=== PATIENT | male | born 1950 | race Caucasian/White ===

== ENCOUNTER 2016-11-19 03:04 | Inpatient (IN) | payer OTHER ==
--- NOTE | ~2016-11-19 | DS ---
Discharge Summary [facility] [address] [facility] [place]. [address] NAME: KOLBY JASON : 52 STATUS : DIS IN PAT#: [id number] AGE: 66 ADM/REG DATE : 11/19/16 MR#: [id number] REPORT SERV DATE: 11/22/16 DICTATED BY: RAJESH DE JESUS DATE: 11/22/16 REPORT STATUS : Draft TRANSCRIBED BY: MODL DATE: 11/22/16 ADMISSION DATE: 11/19/2016 DISCHARGE DATE: 11/22/2016 DISCHARGE DIAGNOSES: 1. Right hip fracture, status post right total hip arthroplasty. 2. Hypovolemic hyponatremia with sodium of 121 on admission, improved to 130 with IV fluid resuscitation. The patient is known to have chronic hyponatremia with baseline sodium of 124 to 132. 3. Shock, apparent on admission, however, the patient has been hemodynamically stable throughout the hospital stay. 4. Acute blood loss anemia related to the surgery, the patient's hemoglobin was as high as 14 on admission, but trended down to 10 after the surgery. 5. Initial evaluation of heme-positive stools. However, the patient has not had any history of gastrointestinal bleeds and the patient is also on iron supplementation. GI consultation was canceled as it was felt the patient did not need immediate GI attention. 6. Discoid lupus. 7. Chronic obstructive pulmonary disease. CONSULTANTS: Orthopedic Surgery, Dr. Bach. PROCEDURES: Total hip arthroplasty, performed on 11/19/2016. HOSPITAL COURSE: This is a 66-year-old gentleman who was admitted to the hospital with a right hip fracture. For details, please refer to H and P by Dr. Lavelle Kessler. In summary, the patient was admitted and was seen by Orthopedic Surgery who performed a total right hip arthroplasty. The patient actually tolerated the procedure really well, and the patient was able to walk around by the second day of the hospital stay on postoperative day #1. The patient was also treated for hyponatremia with IV fluid hydration, and the patient's sodium improved from 121 up to 130 which is actually his baseline. Also of note, the patient was initially found to have heme-positive stools in the setting of iron supplementation at home. Upon reviewing history with the patient, the patient did not have any acute GI bleeding and thus it was felt necessary to have a GI evaluation as an inpatient and thus GI consultation was canceled. The patient did develop postop acute blood loss anemia with his hemoglobin down trending from 14 to 10. Nonetheless, the patient remained asymptomatic and very stable. The patient actually was able to ambulate the hallway with Physical Therapy on postop days 2 and 3. The patient was cleared for discharge from Orthopedic Surgery and the patient was recommended to be discharged to home with Outpatient Physical Therapy and thus the patient is now being discharged to home with close followup instructions. Of note, as today is [facility], there was lack of support from insurance and discharge planning. The patient's outpatient home physical therapy was unable to be set up today. Case Management will follow up with the patient tomorrow. The patient is being discharged to home with hip support kit as well as a rolling walker and bedside commode. DISCHARGE DESTINATION: Home. Discharge Summary [address] [address] NAME: KOLBY JASON : 52 STATUS : DIS IN PAT#: [id number] AGE: 66 ADM/REG DATE : 11/19/16 MR#: [id number] REPORT SERV DATE: 11/22/16 DICTATED BY: RAJESH DE JESUS DATE: 11/22/16 REPORT STATUS : Draft TRANSCRIBED BY: LUIS MIGUEL DATE: 11/22/16 DISCHARGE MEDICATIONS: 1. Percocet 5/325 one tablet p.o. q.6 hours p.r.n. 2. Colace 100 mg p.o. b.i.d. 3. Coumadin 5 mg p.o. daily. FOLLOWUP: 1. Please follow up with PCP in the next one to two weeks. 2. Please follow up with Orthopedic Surgery as instructed. 3. Total of 25 minutes spent in coordinating this patient's discharge today. DICTATED BY: Rajesh De Jesus MD Jim/LUIS MIGUEL Rajesh De Jesus MD / [id number] CC: MD Myles Rich M.D.
--- NOTE | ~2016-11-19 | OP ---
Record Of Operation [facility] [address] [place]. [address] NAME: KOLBY JASON : 52 STATUS : DIS IN PAT#: [id number] AGE: 66 ADM/REG DATE : 11/19/16 MR#: [id number] REPORT SERV DATE: 12/01/16 DICTATED BY: MONIQUE MARIE DATE: 12/01/16 REPORT STATUS : Draft TRANSCRIBED BY: LUIS MIGUEL DATE: 12/01/16 DATE OF PROCEDURE: 11/19/2016 PREOPERATIVE DIAGNOSIS: Right hip displaced femoral neck fracture. POSTOPERATIVE DIAGNOSIS: Right hip displaced femoral neck fracture. PROCEDURE: Uncemented total hip arthroplasty, Tri-Lock. SIDE: Right. DYNAMICS AX TECHNICAL ARCHITECT: See chart. ANESTHESIA: See chart. SIZE: See chart. ESTIMATED BLOOD LOSS: About 100 mL. INDICATIONS FOR SURGERY: PROCEDURE: The patient was taken to the operating room and placed supine on the table without incident. Anesthetic was induced per the anesthesiologist. A Munguia catheter was placed by the nurse in the standard sterile technique. The correct side for the procedure was identified by preoperative markings and matched with the consent form. All personnel in the room were in agreement regarding the procedure, patient, and side. The patient was then carefully positioned and carefully padded and prepped and draped in the normal sterile fashion. The patient received prophylactic preoperative antibiotics at the appropriate time. The preoperative x-ray was brought up on the monitor. Again, this was reviewed with the staff in the room. According with the preoperative plan, and angled, an anterolateral incision was made centered over the trochanter extending from proximal posterior to distal anterior. Electrocautery was used to maintain meticulous hemostasis. The IT band was split in line with its fibers. A Charnley retractor was placed over saline moistened laps. A standard anterolateral approach to the hip was carried out dissecting in line with the vastus medialis fibers lifting the inferior 20% of the vastus medialis, proximally the interior 20% of the gluteus medius and gluteus minimus tendons off the anterior capsule. Periosteal elevator was used to elevate soft tissue gently directly off the proximal anterior femoral bone. Appropriate retractors were carefully placed. Complete anterior capsulectomy was performed. The hip was then carefully dislocated with a combination of traction maneuver by the insurance sales assistant and scooping the ball out of the socket with a Hohmann. A femoral neck osteotomy was marked according to what had been preoperatively planned with a broach as a template. The distance for the femoral neck osteotomy was measured with a ruler. A femoral neck osteotomy was made with an oscillating saw under appropriate retraction. Meticulous hemostasis was again obtained. The leg was then brought up out of the anterior bag and Record Of Operation [address] [place]. [address] NAME: KOLBY JASON : 52 STATUS : DIS IN PAT#: [id number] AGE: 66 ADM/REG DATE : 11/19/16 MR#: [id number] REPORT SERV DATE: 12/01/16 DICTATED BY: MONIQUE MARIE DATE: 12/01/16 REPORT STATUS : Draft TRANSCRIBED BY: LUIS MIGUEL DATE: 12/01/16 positioned with the lower extremity in external rotation and slight flexion. Acetabular retractors were placed carefully palpating to be sure that they were directly on the bone. The acetabular labrum was excised with electrocautery and rongeur. Pulvinar fat was removed with a large curette and rongeur and again meticulous hemostasis was obtained. Sequential reamers were used in the acetabulum to 1 mm. less than the final size which was chosen. This was felt to give excellent interference fit. The acetabular fossa was then copiously irrigated with pulsatile lavage and actual acetabular component was placed and impacted and checked to make sure it was down snug. The overall alignment was checked. The acetabular sap sd analyst was then removed. Screws were placed in the standard fashion. A drill, depth gauge and self tapping screw placement taking care not to plunge as the drill holes were carefully placed. A trial liner was then placed and attention directed back to the proximal femur. The leg was placed back into the anterior bag. The proximal femur was prepared using a box chisel following by a T-handled reamer to determine the intramedullary alignment. This was followed by sequential broaches up to the final broach. Once it was seated in the appropriate position, a Calcar reamer was used to plane the proximal femur. Trial reduction was then done with a trial prosthetic ball and neck. A straight edge was used to compare the tip of the trochanter to center of the ball relationship to what had been noted on the preoperative x-ray. Careful reduction was then done of the total hip. Palpation was done to ascertain and compare leg lengths by palpating the nonoperative leg and also by checking soft tissue tension. The stability of the hip was checked in full extension with full external rotation and in full flexion with adduction, flexion and internal rotation. The hip was then redislocated with a bone hook. The femoral trial and femoral broach were removed. The acetabulum was then prepared under appropriate retraction by removing the trial liner. A central hole eliminator was placed and tightened. The shell was irrigated out. The actual insert was placed and impacted and then checked to be sure it was down snug with a joker. The leg was again positioned in the bag. The proximal femur exposed, irrigated and the actual thermal prosthesis was taken from the underwriting sales representative and impacted. Once it was down, the trunnion was cleansed with a wet and dry lap and the prosthetic thermal head was placed and impacted and checked to be sure it was down snug. The acetabulum was irrigated and reduction was obtained. Again, we checked soft tissue tension, leg length and stability as described above. The hip was closed in a layered fashion with a 5 mm. Mersilene tape placed through a single drill hole in the proximal anterior/superior trochanter reattaching the gluteus medius and minimus fibers. The vastus lateralis, gluteus medius, and gluteus minimus were then closed in a sleeve. Drain was placed between the vastus and the IT band exiting distally anteriorly. The IT band was closed. Subcutaneous closure and skin closure were then obtained. A sterile dressing was applied. The patient was carefully positioned into a supine position and then awakened. The patient was then carefully transferred to the stretcher to be returned to the postoperative care unit without incident. COMPLICATION: None. SPECIMENS: Right femoral head. Record Of Operation [place] [id number] [facility] [place]. [address] NAME: KOLBY JASON : 52 STATUS : DIS IN PAT#: [id number] AGE: 66 ADM/REG DATE : 11/19/16 MR#: [id number] REPORT SERV DATE: 12/01/16 DICTATED BY: MONIQUE MARIE DATE: 12/01/16 REPORT STATUS : Draft TRANSCRIBED BY: MODGreg DATE: 12/01/16 WTB/MODL Umer Marie M.D. / [id number] CC: MD Myles Rich M.D.
--- NOTE | ~2016-11-19 | HP ---
History And Physical [address] [place]. [address] NAME: KOLBY JASON : 52 STATUS : ADM IN PAT#: [id number] AGE: 66 ADM/REG DATE : 11/19/16 MR#: [id number] REPORT SERV DATE: 11/19/16 DICTATED BY: MONIQUE BACH DATE: 11/19/16 REPORT STATUS : Draft TRANSCRIBED BY: MODL DATE: 11/19/16 DATE OF ADMISSION: 11/19/2016 CHIEF COMPLAINT: Right hip pain. HISTORY: This 66-year-old male reports being disabled for 10 years with back pain, who fell and injured his right hip. He denies pain or injury elsewhere. No associated loss of consciousness, shortness of breath, chest pain, etc. ALLERGIES: NONE. MEDICATIONS: See chart. PAST MEDICAL HISTORY: COPD, hypertension, tuberculosis, neuropathy, melanoma, and lupus. PAST SURGICAL HISTORY: Right arm melanoma five years ago. SOCIAL HISTORY: Lives alone. Disabled. Fifty one years of cigarette use. No alcohol or illicit drugs. FAMILY HISTORY: No anesthetic complications. REVIEW OF SYSTEMS: As above. PHYSICAL EXAMINATION: GENERAL: He is alert and oriented x3, in no apparent distress. HEENT: Atraumatic, normocephalic. NECK: Supple. CHEST: Symmetric, nontender. LUNGS: Per AA evaluation. CV: Regular. ABDOMEN: Soft. No mass. EXTREMITIES: Right lower extremity is externally rotated. Skin is intact. Compartment supple. 2+ pulses. NEURO: Sensory and motor without deficit. X-RAY: Right hip displaced femoral neck fracture. ASSESSMENT: Right hip displaced femoral neck fracture. PLAN: Right total hip arthroplasty. Risks, benefits, etc. explained. The patient wishes to proceed. History And Physical [address] [place]. [address] NAME: KOLBY JASON : 52 STATUS : ADM IN PAT#: [id number] AGE: 66 ADM/REG DATE : 11/19/16 MR#: [id number] REPORT SERV DATE: 11/19/16 DICTATED BY: MONIQUE BACH DATE: 11/19/16 REPORT STATUS : Draft TRANSCRIBED BY: MODL DATE: 11/19/16 WTB/MODL Umer Bach M.D. / [id number] CC: MD Myles Rich M.D.
--- NOTE | ~2016-11-19 | HP ---
History And Physical [place] [id number] [facility] [place]. [address] NAME: KOLBY JASON : 52 STATUS : ADM IN [facility]#: [id number] AGE: 66 ADM/REG DATE : 11/19/16 MR#: [id number] REPORT SERV DATE: 11/19/16 DICTATED BY: DANA GARCIA DATE: 11/19/16 REPORT STATUS : Draft TRANSCRIBED BY: LUIS MIGUEL DATE: 11/19/16 DATE OF ADMISSION: 11/19/2016 CHIEF COMPLAINT: A 66-year-old male presenting with a fall and right hip fracture. HISTORY OF PRESENTING ILLNESS: The patient's history was obtained through an interview with the patient, coupled with review of [facility] medical records. The patient states that for a few days, he has had slight lightheadedness, orthostatic-like symptoms, nausea with near vomiting. It is in this context that he was going to bed on the evening of admission, walking through his home, he pivoted and tried to turn to his left too quickly and lost balance falling to the floor. When he fell to the floor, he twisted his right hip. He describes an aching discomfort without radiation, 10/10 severity. He could not get up from a lying down position. No shortness of breath. No chest pain. No fevers or chills. No change of bowel or bladder habit. He denies seeing any bright red blood per rectum nor melena recently. REVIEW OF SYSTEMS: Otherwise, a complete review of systems 14-point was reviewed and was negative. PAST MEDICAL HISTORY: 1. Discoid lupus with skin manifestations. 2. COPD. 3. Peripheral arterial disease with lower extremity stent placement. 4. Hypertension. 5. Chronic hyponatremia with sodium of 124 to 132. 6. Tuberculosis 18 years ago. 7. No cardiac disease. PAST SURGICAL HISTORY: Right arm melanoma resection. ALLERGIES: NO KNOWN DRUG ALLERGIES. SOCIAL HISTORY: Drinks occasional mixed drinks and beer, but not every night. He smokes cigarettes. He has been a for six years. He is disabled. Lives in [place], [place]. He has two sons, they both live in [place]. FAMILY HISTORY: Mother with rheumatoid arthritis. Father of natural causes. CURRENT MEDICATIONS: Include albuterol, Zyrtec 10 mg p.o. daily, Plavix 75 mg p.o. daily, Advair inhaled twice a day, Neurontin 400 mg p.o. t.i.d., lisinopril 20 mg p.o. daily, omeprazole 20 mg p.o. daily, Zantac 150 mg p.o. b.i.d., iron supplement. History And Physical [place] [id number] [place]. [address] NAME: KOLBY JASON : 52 STATUS : ADM IN PAT#: [id number] AGE: 66 ADM/REG DATE : 11/19/16 MR#: [id number] REPORT SERV DATE: 11/19/16 DICTATED BY: DANA GARCIA DATE: 11/19/16 REPORT STATUS : Draft TRANSCRIBED BY: LUIS MIGUEL DATE: 11/19/16 PHYSICAL EXAMINATION: VITAL SIGNS: Temperature 99.0; pulse 63; blood pressure 91/41, but improved to 124/ with IV fluids; respiratory rate 19; O2 sat 99% on room air. GENERAL: A pleasant, cooperative male, no evidence of acute distress. His pain has been managed well with IV narcotic pain management in the emergency department. HEENT: Pupils equal, round, and reactive to light. No conjunctival pallor. No scleral icterus. Nares are patent. Oropharynx is clear of obstruction. Dry mucous membranes. NECK: Trachea midline. No thyromegaly. LYMPH: No cervical lymphadenopathy. No supraclavicular lymphadenopathy. RESPIRATORY: Clear to auscultation at bases. No wheezes, no rales, no rhonchi. Normal respiratory effort. CARDIOVASCULAR: Regular rate and rhythm. No murmurs, rubs, or gallops. No extremity edema is appreciated. ABDOMEN: Soft, nontender, nondistended. Normal bowel sounds auscultated throughout. No hepatosplenomegaly. DERMATOLOGICAL: Warm and dry extremities. No pallor. No cyanosis. PSYCHIATRIC: Normal affect. Good mood. Alert and oriented x3. LABORATORY DATA: White blood cell count 5.9, hemoglobin 14, hematocrit 39, platelets 181. Sodium 121, potassium 4.5, chloride 91, bicarb 25, BUN 5, creatinine , glucose 131. A Hemoccult of dark stool showed positive. INR 1.1. Troponin negative. Urinalysis negative for infection. STUDIES: 1. EKG by my own evaluation shows sinus rhythm. 2. An x-ray of the hip shows right femoral neck fracture. ASSESSMENT AND PLAN: 1. Right hip fracture. We will obtain orthopedic consult and place on IV narcotic pain management. 2. Hypovolemic hyponatremia with baseline sodium of [address] on IV fluids, but also check SIADH studies. 3. Shock. Give IV fluids and monitor. 4. Heme-positive stools. Follow hemoglobin and hematocrit. Obtain a GI consult with Dr. Woods. 5. Discoid lupus with chronic skin manifestations. 6. Chronic obstructive pulmonary disease. Place on nebulizers. MARISOL/LUIS MIGUEL Dana Garcia M.D. / [id number] History And Physical [address] [address] NAME: KOLBY JASON : 52 STATUS : ADM IN [facility]#: [id number] AGE: 66 ADM/REG DATE : 11/19/16 MR#: [id number] REPORT SERV DATE: 11/19/16 DICTATED BY: DANA GARCIA DATE: 11/19/16 REPORT STATUS : Draft TRANSCRIBED BY: LUIS MIGUEL DATE: 11/19/16 CC: MD Myles Rich M.D.
[2016-11-19 02:56] LABS: BASOPHILS 0.3 %; BASOPHILS ABSOLUTE 0.02 10/3/uL (0.0-0.16); EOSINOPHILS 2.5 %; EOSINOPHILS ABSOLUTE 0.15 10/3/uL (0.0-0.53); ER CBC TAT 0 Hrs 00 Mins; IMMATURE GRANULOCYTES 0.3 %; IMMATURE GRANULOCYTES ABSOLUTE 0.02 10/3/uL (0.0-0.11); LYMPHOCYTES 26.1 %; LYMPHOCYTES ABSOLUTE 1.54 10/3/uL (0.67-4.30); MEAN CORPUS HGB CONC 35.6 g/dL (32.0-36.0); MEAN CORPUSCULAR HEMOGLOB 31.5 pg (26.0-34.0); MEAN CORPUSCULAR VOLUME 88.4 fL (80-100); MEAN PLATELET VOLUME 9.2 fL (9.2-13.0); MONOCYTES ABSOLUTE 0.53 10/3/uL (0.21-1.20); NEUTROPHILS 61.8 %; NEUTROPHILS ABSOLUTE 3.64 10/3/uL (2.02-8.40); PLATELET COUNT 181 10/3/uL (150-400); RBC DISTRIBUTION WIDTH 13.3 % (12.0-16.0); WHITE BLOOD CELLS 5.9 10/3/uL (4.5-10.5)
[2016-11-19 02:59] LABS: HEMOGLOBIN 13.9 g/dL (13.6-17.8); RED CELL COUNT 4.41 10/6/uL (4.7-6.1)
[2016-11-19 03:00] LABS: MANUAL DIFF NO %
[~2016-11-19 03:04] MED LIST: ADVAIR250 INH; FEOSOL PO; NEUR400 PO; P5 PO; PLAVIX PO; PRILO PO; PRIN20 PO; PROAIR HFA INH; VISINE0.05 % OPH; ZANTAC 150 PO; ZYRTEC ALLGY10 MG PO
[2016-11-19 03:05] LABS: INTERNATIONAL NORMAL RATI 1.1 UNITS (-); PROTIME (NOT ORD) 13.9 SEC (12.0-14.5)
[2016-11-19 03:06] LABS: PARTIAL THROMBO TIME 37.4 SEC (22.5-37.2)
[2016-11-19 03:14] LABS: CALCIUM, SERUM 8.4 MG/DL (8.5-10.4); CHEST PAIN PROFILE TAT 0 Hrs 26 Mins; CHLORIDE, SERUM 91 MMOL/L (96-112); CO2 (CARBON DIOXIDE) 25 MMOL/L (24-34); CREATININE 0.92 MG/DL (0.70-1.30); GFR AFRICAN AMERICAN 101 ML/MIN (>=60); GFR NON AFRICAN AMERICAN 87 ML/MIN (>=60); POTASSIUM, SERUM 4.5 MMOL/L (3.5-5.3); TROPONIN I <0.02 NG/ML (<0.05)
[2016-11-19 03:17] LABS: BUN (BLOOD UREA NITROGEN) 5 MG/DL (6-23); GLUCOSE, SERUM 131 MG/DL (60-99); SODIUM, SERUM 121 MMOL/L (135-148)
[2016-11-19 03:23] LABS: WBC (NOT ORDERED) (RFLEX) 0 (0-5)
[2016-11-19 03:26] LABS: ASCORBIC ACID (UR NOT ORDER) NEG (NEG); BILIRUBIN, URINE NEGATIVE (NEG); KETONE, URINE NEGATIVE (NEG); LEUKOCYTE ESTERASE(NOT OR NEG (NEG); NITRITE (URINE) NEG (NEG)
[2016-11-19 09:07] LABS: A/G RATIO 0.8 (0.7-1.9); ALBUMIN 3.2 G/DL (3.5-5.0); ALKALINE PHOSPHATASE 140 U/L (45-117); BUN (BLOOD UREA NITROGEN) 4 MG/DL (6-23); CALCIUM, SERUM 8.3 MG/DL (8.5-10.4); CHLORIDE, SERUM 95 MMOL/L (96-112); CO2 (CARBON DIOXIDE) 22 MMOL/L (24-34); CREATININE 0.65 MG/DL (0.70-1.30); GFR AFRICAN AMERICAN 118 ML/MIN (>=60); GFR NON AFRICAN AMERICAN 102 ML/MIN (>=60); GLUCOSE, SERUM 99 MG/DL (60-99); SGOT(AST) 31 U/L (5-40); SGPT(ALT) 23 U/L (5-65); SODIUM, SERUM 122 MMOL/L (135-148); TOTAL BILIRUBIN 0.3 MG/DL (0-1.2); TOTAL PROTEIN 7.2 G/DL (6.0-8.5); ULTRASENSITIVE TSH 0.838 MCIU/ML (0.358-3.740)
[2016-11-19 10:10] LABS: BASOPHILS 0.2 %; BASOPHILS ABSOLUTE 0.01 10/3/uL (0.0-0.16); EOSINOPHILS 1.6 %; HEMATOCRIT 38.8 % (40.0-51.0); HEMOGLOBIN 13.7 g/dL (13.6-17.8); IMMATURE GRANULOCYTES 0.2 %; IMMATURE GRANULOCYTES ABSOLUTE 0.01 10/3/uL (0.0-0.11); LYMPHOCYTES 33.6 %; LYMPHOCYTES ABSOLUTE 2.16 10/3/uL (0.67-4.30); MEAN CORPUS HGB CONC 35.3 g/dL (32.0-36.0); MEAN CORPUSCULAR VOLUME 87.8 fL (80-100); MEAN PLATELET VOLUME 9.4 fL (9.2-13.0); MONOCYTES 10.7 %; MONOCYTES ABSOLUTE 0.69 10/3/uL (0.21-1.20); NEUTROPHILS 53.7 %; NEUTROPHILS ABSOLUTE 3.45 10/3/uL (2.02-8.40); PLATELET COUNT 177 10/3/uL (150-400); RBC DISTRIBUTION WIDTH 13.3 % (12.0-16.0); RED CELL COUNT 4.42 10/6/uL (4.7-6.1); WHITE BLOOD CELLS 6.4 10/3/uL (4.5-10.5)
[2016-11-19 10:11] LABS: MANUAL DIFF NO %
[2016-11-19 10:17] LABS: INTERNATIONAL NORMAL RATI 1.1 UNITS (-); PROTIME (NOT ORD) 13.8 SEC (12.0-14.5)
[2016-11-19 10:18] LABS: PARTIAL THROMBO TIME 43.2 SEC (22.5-37.2)
[2016-11-19 10:56] LABS: CREATININE, URINE 34.1 MG/DL
[2016-11-19 14:22] LABS: HEMATOCRIT 41.6 % (40.0-51.0); HEMOGLOBIN 14.8 g/dL (13.6-17.8)
[2016-11-19 16:22] LABS: INTERNATIONAL NORMAL RATI 1.1 UNITS (-); PROTIME (NOT ORD) 13.9 SEC (12.0-14.5)
[2016-11-19 16:30] LABS: A/G RATIO 0.8 (0.7-1.9); ALBUMIN 3.2 G/DL (3.5-5.0); ALKALINE PHOSPHATASE 140 U/L (45-117); BUN (BLOOD UREA NITROGEN) 4 MG/DL (6-23); CALCIUM, SERUM 8.5 MG/DL (8.5-10.4); CHLORIDE, SERUM 94 MMOL/L (96-112); GFR AFRICAN AMERICAN 115 ML/MIN (>=60); GFR NON AFRICAN AMERICAN 99 ML/MIN (>=60); GLUCOSE, SERUM 90 MG/DL (60-99); POTASSIUM, SERUM 4.8 MMOL/L (3.5-5.3); SGOT(AST) 37 U/L (5-40); SGPT(ALT) 21 U/L (5-65); SODIUM, SERUM 128 MMOL/L (135-148); TOTAL PROTEIN 7.2 G/DL (6.0-8.5)
[2016-11-19 16:31] LABS: CO2 (CARBON DIOXIDE) 31 MMOL/L (24-34); TOTAL BILIRUBIN 1.2 MG/DL (0-1.2)
[2016-11-20 02:08] LABS: BASOPHILS 0.1 %; BASOPHILS ABSOLUTE 0.01 10/3/uL (0.0-0.16); EOSINOPHILS 0 %; HEMATOCRIT 40.4 % (40.0-51.0); HEMOGLOBIN 14.3 g/dL (13.6-17.8); IMMATURE GRANULOCYTES 0.2 %; IMMATURE GRANULOCYTES ABSOLUTE 0.02 10/3/uL (0.0-0.11); LYMPHOCYTES 6.8 %; LYMPHOCYTES ABSOLUTE 0.58 10/3/uL (0.67-4.30); MEAN CORPUS HGB CONC 35.4 g/dL (32.0-36.0); MEAN CORPUSCULAR HEMOGLOB 32.3 pg (26.0-34.0); MEAN CORPUSCULAR VOLUME 91.2 fL (80-100); MEAN PLATELET VOLUME 9.6 fL (9.2-13.0); MONOCYTES 4.9 %; MONOCYTES ABSOLUTE 0.42 10/3/uL (0.21-1.20); NEUTROPHILS ABSOLUTE 7.47 10/3/uL (2.02-8.40); PLATELET COUNT 158 10/3/uL (150-400); RBC DISTRIBUTION WIDTH 13.6 % (12.0-16.0); RED CELL COUNT 4.43 10/6/uL (4.7-6.1); WHITE BLOOD CELLS 8.5 10/3/uL (4.5-10.5)
[2016-11-20 02:09] LABS: MANUAL DIFF NO %
[2016-11-20 02:16] LABS: INTERNATIONAL NORMAL RATI 1.1 UNITS (-); PROTIME (NOT ORD) 13.6 SEC (12.0-14.5)
[2016-11-20 02:20] LABS: BUN (BLOOD UREA NITROGEN) 5 MG/DL (6-23); CALCIUM, SERUM 8.1 MG/DL (8.5-10.4); CHLORIDE, SERUM 96 MMOL/L (96-112); CREATININE 0.89 MG/DL (0.70-1.30); GFR AFRICAN AMERICAN 104 ML/MIN (>=60); GFR NON AFRICAN AMERICAN 90 ML/MIN (>=60); SODIUM, SERUM 127 MMOL/L (135-148)
[2016-11-20 02:31] LABS: CO2 (CARBON DIOXIDE) 24 MMOL/L (24-34); GLUCOSE, SERUM 142 MG/DL (60-99); POTASSIUM, SERUM 5.3 MMOL/L (3.5-5.3)
[2016-11-21 05:36] LABS: BASOPHILS 0 %; EOSINOPHILS 0 %; IMMATURE GRANULOCYTES 0.2 %; IMMATURE GRANULOCYTES ABSOLUTE 0.02 10/3/uL (0.0-0.11); LYMPHOCYTES 13.3 %; LYMPHOCYTES ABSOLUTE 1.34 10/3/uL (0.67-4.30); MEAN CORPUS HGB CONC 35.2 g/dL (32.0-36.0); MEAN CORPUSCULAR HEMOGLOB 30.9 pg (26.0-34.0); MEAN PLATELET VOLUME 9.6 fL (9.2-13.0); MONOCYTES 11.9 %; MONOCYTES ABSOLUTE 1.19 10/3/uL (0.21-1.20); NEUTROPHILS 74.6 %; NEUTROPHILS ABSOLUTE 7.49 10/3/uL (2.02-8.40); PLATELET COUNT 165 10/3/uL (150-400); RBC DISTRIBUTION WIDTH 13.5 % (12.0-16.0)
[2016-11-21 05:44] LABS: INTERNATIONAL NORMAL RATI 1.9 UNITS (-)
[2016-11-21 05:48] LABS: HEMOGLOBIN 10.3 g/dL (13.6-17.8); RED CELL COUNT 3.33 10/6/uL (4.7-6.1)
[2016-11-21 05:49] LABS: HEMATOCRIT 29.3 % (40.0-51.0); MANUAL DIFF NO %
[2016-11-21 05:50] LABS: PROTIME (NOT ORD) 21.5 SEC (12.0-14.5)
[2016-11-21 05:52] LABS: BUN (BLOOD UREA NITROGEN) 10 MG/DL (6-23); CALCIUM, SERUM 8.5 MG/DL (8.5-10.4); CHLORIDE, SERUM 94 MMOL/L (96-112); CO2 (CARBON DIOXIDE) 27 MMOL/L (24-34); CREATININE 0.77 MG/DL (0.70-1.30); GFR AFRICAN AMERICAN 110 ML/MIN (>=60); GFR NON AFRICAN AMERICAN 95 ML/MIN (>=60); GLUCOSE, SERUM 132 MG/DL (60-99); POTASSIUM, SERUM 4.5 MMOL/L (3.5-5.3); SODIUM, SERUM 127 MMOL/L (135-148)
[2016-11-22 05:52] LABS: BASOPHILS 0.2 %; BASOPHILS ABSOLUTE 0.02 10/3/uL (0.0-0.16); EOSINOPHILS 1.2 %; HEMATOCRIT 27.1 % (40.0-51.0); HEMOGLOBIN 9.5 g/dL (13.6-17.8); IMMATURE GRANULOCYTES 0.1 %; IMMATURE GRANULOCYTES ABSOLUTE 0.01 10/3/uL (0.0-0.11); LYMPHOCYTES 29.7 %; LYMPHOCYTES ABSOLUTE 2.39 10/3/uL (0.67-4.30); MEAN CORPUS HGB CONC 35.1 g/dL (32.0-36.0); MEAN CORPUSCULAR HEMOGLOB 31.1 pg (26.0-34.0); MEAN CORPUSCULAR VOLUME 88.9 fL (80-100); MEAN PLATELET VOLUME 9.4 fL (9.2-13.0); MONOCYTES 13.4 %; MONOCYTES ABSOLUTE 1.08 10/3/uL (0.21-1.20); NEUTROPHILS 55.4 %; NEUTROPHILS ABSOLUTE 4.44 10/3/uL (2.02-8.40); PLATELET COUNT 181 10/3/uL (150-400); RBC DISTRIBUTION WIDTH 13.9 % (12.0-16.0); RED CELL COUNT 3.05 10/6/uL (4.7-6.1)
[2016-11-22 05:55] LABS: MANUAL DIFF NO %; PROTIME (NOT ORD) 22.1 SEC (12.0-14.5)
[2016-11-22 05:59] LABS: BUN (BLOOD UREA NITROGEN) 9 MG/DL (6-23); CALCIUM, SERUM 8.6 MG/DL (8.5-10.4); CHLORIDE, SERUM 100 MMOL/L (96-112); CO2 (CARBON DIOXIDE) 24 MMOL/L (24-34); CREATININE 0.86 MG/DL (0.70-1.30); GFR AFRICAN AMERICAN 105 ML/MIN (>=60); GFR NON AFRICAN AMERICAN 91 ML/MIN (>=60); GLUCOSE, SERUM 106 MG/DL (60-99); POTASSIUM, SERUM 4.4 MMOL/L (3.5-5.3); SODIUM, SERUM 131 MMOL/L (135-148)
[2016-11-22] MEDS ORDERED: C25 (11:05)
[2016-11-22] MEDS ORDERED: PCET PO (11:06)
[2016-11-22] MEDS ORDERED: DSS PO (11:06)
[2016-11-22 12:20] LABS: HEMATOCRIT 30.7 % (40.0-51.0); HEMOGLOBIN 10.4 g/dL (13.6-17.8)
== END 2016-11-22 16:12 | disposition home or self-care (01) | DRG 469 ==
LOC: ER 03:04 → 6NO 03:42
PROVIDERS: Emergency Medicine; Hospitalist; Internal Medicine; Nurse Practitioner; Specialist
PROC: 0SR904Z Replacement of Right Hip Joint with Ceramic on Polyethylene Synthetic Substitute, Open Approach (ICD-10-PCS; principal; 2016-11-19 16:00)
DX: S72.001A Fracture of unspecified part of neck of right femur, initial encounter for closed fracture (principal); R57.1 Hypovolemic shock; E87.1 Hypo-osmolality and hyponatremia; D62 Acute posthemorrhagic anemia; J44.9 Chronic obstructive pulmonary disease, unspecified; I73.9 Peripheral vascular disease, unspecified; W19.XXXA Unspecified fall, initial encounter; L93.0 Discoid lupus erythematosus; F17.210 Nicotine dependence, cigarettes, uncomplicated; G62.9 Polyneuropathy, unspecified; Z86.11 Personal history of tuberculosis; Z85.820 Personal history of malignant melanoma of skin; Z79.02 Long term (current) use of antithrombotics/antiplatelets
CPT/HCPCS: 36415; 72170; 73502-RT; 80048; 80053; 81001; 82570; 83735; 83935; 84300; 84443; 84484; 85014; 85018; 85025; 85610; 85730; 86850; 86900; 86901; 87641; 88305; 88311; 93005; 94640; 96374; 97110-GP; 97116-GP; 97161-GP; 97166-GO; 97535-GO; 99285; A9270-GY; C1713; C1776; G8987-CK-GO; G8988-CK-GO; G8989-CK-GO; J0690; J1170; J1885; J2250; J2270; J2274; J2405; J2710; J2795; J3010; J3370